=== PATIENT | female | born 1985 | race Caucasian/White ===

== ENCOUNTER 2017-01-01 06:45 | Inpatient (IN) | payer OTHER ==
[2017-01-01 09:49] LABS: Hematocrit 43 % (35-47); Hemoglobin 14.8 g/dl (12.0-16.0); Mean Corpuscular HGB Conc 34 g/dl (31-36); Mean Corpuscular Hemoglobin 33 pg (27-31); Mean Corpuscular Volume 95 fL (80-97); Mean Platelet Volume 11 um3 (7.4-10.4); Red Blood Count 4.56 10^6/ul (4.0-5.4); Red Cell Distribution Width 13 % (10.5-15); White Blood Count 10.3 10^3/ul (3.5-10.8)
[2017-01-01 10:00] LABS: ALT 13 U/L (7-52); Albumin 3.4 g/dL (3.2-5.2); Alkaline Phosphatase 179 U/L (34-104); BUN/Creatinine Ratio 26.1 (8-20); Blood Urea Nitrogen 18 mg/dL (6-24); CO2 Carbon Dioxide 24 mmol/L (22-32); Calcium 9.6 mg/dL (8.6-10.3); Chloride 106 mmol/L (101-111); EGFR African American 127.6 (>60); EGFR Non-African American 99.2 (>60); Globulin 3.5 g/dL (2-4); Glucose 69 mg/dL (70-100); Sodium 136 mmol/L (133-145); Total Protein 6.9 g/dL (6.4-8.9); Uric Acid 6.2 mg/dL (2.3-6.6)
[2017-01-01 10:31] LABS: Anion Gap 6 mmol/L (2-11)
--- NOTE | 2017-01-01 13:54 | PTEDU ---
Patient Name: PHYLLIS WHATLEY PHYLLIS WHATLEY selected video: Follow Me Mum: [employer] [place] to view on 01/01 at 1:53:49 PM from [id number]
--- NOTE | 2017-01-01 14:45 | PTEDU ---
Patient Name: PHYLLIS WHATLEY PHYLLIS WHATLEY selected video: Never Ever Shake a Baby to view on 01/01/2017 at 2:44:20 PM from [id number]
[2017-01-01] MEDS ORDERED: Oxytocin in LR* 20 UNITS/1,000 ML BAG IVPB SCH (18:00)
[2017-01-01] MEDS ORDERED: Witch Hazel PAD* JAR TOPICAL PRN (23:22)
[2017-01-01] MEDS ORDERED: Dibucaine 1% 28.35 GM TUBE PR PRN (23:22)
[2017-01-01] MEDS ORDERED: oxyCODONE/Acetamin 5/325 MG* TAB PO PRN (23:22)
[2017-01-01] MEDS ORDERED: Acetaminophen TAB* 325 MG PO PRN (23:22)
[2017-01-02] MEDS: Ibuprofen TAB* 600 MG PO PRN ×2 (02:45→08:51)
[2017-01-02 06:41] LABS: Hematocrit 38 % (35-47); Mean Corpuscular HGB Conc 35 g/dl (31-36); Mean Corpuscular Hemoglobin 33 pg (27-31); Mean Corpuscular Volume 94 fL (80-97); Mean Platelet Volume 10 um3 (7.4-10.4); Red Blood Count 3.97 10^6/ul (4.0-5.4); Red Cell Distribution Width 13 % (10.5-15); White Blood Count 14.1 10^3/ul (3.5-10.8)
[2017-01-02 07:15] VITALS: BP 113/87
[2017-01-02] MEDS ORDERED: Ferrous Gluconate TAB* 324 MG TAB PO SCH (09:00)
[2017-01-02] MEDS ORDERED: Docusate CAP* 100 MG PO SCH (09:00)
== END 2017-01-02 11:56 | disposition home or self-care (01) | DRG 775 ==
LOC: MCHOBOUT 06:45 → MCHOB 07:18
PROVIDERS: ADMIT Midwife; ATTEND Nurse Practitioner
PROC: 10E0XZZ Delivery of Products of Conception, External Approach (ICD-10-PCS; principal; 2017-01-01)
PROC: 0KQM0ZZ Repair Perineum Muscle, Open Approach (ICD-10-PCS; 2017-01-01)
PROC: 4A1HXCZ Monitoring of Products of Conception, Cardiac Rate, External Approach (ICD-10-PCS; 2017-01-01)
DX: O48.0 Post-term pregnancy (principal); R03.0 Elevated blood-pressure reading, without diagnosis of hypertension; O75.89 Other specified complications of labor and delivery; O43.123 Velamentous insertion of umbilical cord, third trimester; O70.1 Second degree perineal laceration during delivery; Z37.0 Single live birth; Z80.9 Family history of malignant neoplasm, unspecified; Z3A.40 40 weeks gestation of pregnancy; Z83.3 Family history of diabetes mellitus; Z82.49 Family history of ischemic heart disease and other diseases of the circulatory system
CPT/HCPCS: 36415; 76815; 80053; 81002; 84550; 85025; 86850; 86900; 86901; A9270-GY

== ENCOUNTER 2020-03-08 08:10 | Inpatient (IN) ==
[2020-03-08] MEDS ORDERED: Terbutaline INJ 1 MG/ML 1 ml VIAL SUBCUT ONE (09:06)
[2020-03-08] MEDS ORDERED: Lactated Ringers 1000 ml BAG 1,000 ML IV ONE (09:06)
[2020-03-08 09:33] LABS: ABS Basophils 0.1 10^3/ul (0-0.2); ABS Lymphocytes 1.3 10^3/ul (1.0-4.8); ABS Monocytes 0.9 10^3/ul (0-0.8); ABS Neutrophils 8.2 10^3/ul (1.5-7.7); Eosinophil % 0.4 %; Hematocrit 38 % (35-47); Hemoglobin 13.1 g/dL (12.0-16.0); Lymphocyte % 12.2 %; Mean Corpuscular HGB Conc 34 g/dL (31-36); Mean Corpuscular Hemoglobin 33 pg (27-31); Mean Corpuscular Volume 96 fL (80-97); Mean Platelet Volume 9.4 fL (7.4-10.4); Platelet Count 164 10^3/uL (150-450); Red Blood Count 3.99 10^6 /uL (3.70-4.87); Red Cell Distribution Width 13 % (10-15); White Blood Count 10.5 10^3/uL (3.5-10.8)
[2020-03-08 09:53] LABS: Urine Benzodiazepine Screen None Detected (None Detect); Urine Cannabinoids Screen None Detected (None Detect); Urine Opiates Screen None Detected (None Detect)
[2020-03-08] MEDS ORDERED: Oxytocin in LR 20 UNITS/1,000 ML BAG IVPB SCH (11:00)
[2020-03-09] MEDS ORDERED: Ondansetron 4 mg VIAL 2 MG/ML 2 ml VIAL IV ONE (04:59)
[2020-03-09] MEDS ORDERED: Bupivacaine 0.25% SDV PF 10 ML VIAL INJ ONE (07:04)
[2020-03-09] MEDS ORDERED: OBEPIDURAL 250 ML EPIDURAL ONE (07:06)
[2020-03-09] MEDS: Lactated Ringers 1000 ml BAG 1,000 ML IV SCH ×2 (07:16→08:15)
[2020-03-09] MEDS ORDERED: Phenylephrine 40 mcg/mL 10mL (400mcg) SYRINGE IV PUSH PRN ×2 (08:04)
[2020-03-09] MEDS ORDERED: Lactated Ringers 1000 ml BAG 1,000 ML IV ONE (08:04)
[2020-03-09] MEDS ORDERED: Sodium Citrate/Citric Acid LIQ 15 ML UDC PO PRN (08:04)
[2020-03-09] MEDS ORDERED: OBEPIDURAL 250 ML EPIDURAL SCH (09:00)
[2020-03-09] MEDS ORDERED: Lactated Ringers 1000 ml BAG 1,000 ML IV SCH ×2 (09:00→11:00)
[2020-03-09] MEDS ORDERED: Witch Hazel PAD JAR TOPICAL PRN (10:20)
[2020-03-09] MEDS ORDERED: Glycerin ADULT 2.4 gm SUPP PR PRN (10:20)
[2020-03-09] MEDS ORDERED: Dibucaine 1% OINT 28.35 GM TUBE PR PRN (10:20)
[2020-03-09] MEDS ORDERED: Oxytocin in LR 20 UNITS/1,000 ML BAG IVPB SCH (11:00)
[2020-03-09] MEDS ORDERED: Lidocaine 1% VIAL 10 MG/ML VIAL ONE (12:50)
[2020-03-10 06:39] LABS: ABS Basophils 0.1 10^3/ul (0-0.2); ABS Eosinophils 0.1 10^3/ul (0-0.6); ABS Lymphocytes 2.3 10^3/ul (1.0-4.8); ABS Monocytes 0.9 10^3/ul (0-0.8); ABS Neutrophils 8.9 10^3/ul (1.5-7.7); Hematocrit 27 % (35-47); Hemoglobin 9.7 g/dL (12.0-16.0); Lymphocyte % 18.4 %; Mean Corpuscular HGB Conc 36 g/dL (31-36); Mean Corpuscular Hemoglobin 34 pg (27-31); Mean Corpuscular Volume 96 fL (80-97); Mean Platelet Volume 8.8 fL (7.4-10.4); Platelet Count 151 10^3/uL (150-450); Red Blood Count 2.85 10^6 /uL (3.70-4.87); Red Cell Distribution Width 13 % (10-15); White Blood Count 12.2 10^3/uL (3.5-10.8)
[2020-03-10 08:28] VITALS: BP 108/67
[2020-03-10] MEDS ORDERED: Influenza VAC *QUAD* 2020-21* 0.5 ML SYRINGE IM ONE (09:00)
== END 2020-03-10 15:49 | disposition home or self-care (01) | DRG 807 ==
LOC: MCHOBOUT 08:10 → MCHOB 08:59
PROVIDERS: ADMIT Midwife; ATTEND Midwife